=== PATIENT | female | born 1935 | race Caucasian/White ===

== ENCOUNTER → 2016-10-13 14:34 | Outpatient (CLI) | payer MEDICARE, OTHER ==
[2016-05-14 12:57] VITALS: BMI 27.2
[~2016-10-13 14:34] MED LIST: ASCORBIC ACID500 MG OR; ASPIRIN EC81 M1 PO; BACTRIM DS TABL1 TAB PO; CALCIUM 500 + D1 TAB; CALTRATE 600 M600 M1 PO; CHOLESTEROL REDUCTIO OR; CILOSTAZOL50 MG PO; COUMADIN2.5 MG PO; COUMADIN5 MG PO; DUREZOL5 ML LEFT EYE; FISH OIL 1,0001 CA1 PO; GABAPENTIN100 MG PO; GARLIC1 CAP PO; GINSENG OR; GLUCOSAMINE HC500 MG PO; HYDROCODON-ACE1 EAC7 PO; ILEVRO 0.3% OPHTH DR LEFT EYE; K-DUR20 MEQ PO; LECITHIN1200 MG PO; LEVOTHYROXINE100 MCG PO; MILK THISTLE140 MG PO; MULTI-DAY VITAM1 TAB PO; NUTRIFERON PO; OSTEO MATRIX PO; PLAVIX75 MG PO; PRAVACHOL20 MG PO; PRAVASTATIN SOD10 MG PO; PROBIOTIC; SLOW-MAG 64 MG64 MG PO; STRESS RELIEF PO; SYNTHROID100 MCG PO; TOBREX5 ML LEFT EYE; VITAMIN B COMPL1 TAB PO; VITAMIN C500 MG PO; VITAMIN D31000 UNIT PO; VITAMIN E200 UNI1 PO; VITAMIN E400 UNI2 PO; VIVIX PO; ZINC COMPLEX PO; ZINC30 MG PO; [UNRECOGNIZED DRUG - OTHER] OR; [UNRECOGNIZED DRUG - OTHER] OR; [UNRECOGNIZED DRUG - OTHER] OR; [UNRECOGNIZED DRUG - OTHER] OR; [UNRECOGNIZED DRUG - OTHER] OR; [UNRECOGNIZED DRUG - OTHER] OR; [UNRECOGNIZED DRUG - OTHER] OR; [UNRECOGNIZED DRUG - OTHER] PO; [UNRECOGNIZED DRUG - OTHER] PO; [UNRECOGNIZED DRUG - OTHER] PO; [UNRECOGNIZED DRUG - OTHER] PO; [UNRECOGNIZED DRUG - OTHER] PO; [UNRECOGNIZED DRUG - OTHER] PO; [UNRECOGNIZED DRUG - OTHER] PO; [UNRECOGNIZED DRUG - OTHER] PO; [UNRECOGNIZED DRUG - OTHER] PO; [UNRECOGNIZED DRUG - OTHER] PO; [UNRECOGNIZED DRUG - OTHER] PO; [UNRECOGNIZED DRUG - OTHER] PO; [UNRECOGNIZED DRUG - OTHER] PO; [UNRECOGNIZED DRUG - OTHER] PO; [UNRECOGNIZED DRUG - OTHER] PO; [UNRECOGNIZED DRUG - REMARK] PO
== END | disposition home or self-care (01) ==
LOC: D.LABREF 14:34
DX: R19.7 Diarrhea, unspecified (principal)

== ENCOUNTER 2017-12-09 18:55 | Inpatient (IN) | payer MEDICARE, OTHER ==
[~2017-12-09] VITALS: Ht 167.6 cm; Wt 78.7 kg
--- NOTE | ~2017-12-09 | OP ---
PATIENT NAME: HUI VARGAS MEDICAL RECORD: [id number] :31 LOCATION:[facility] D.2310 ADMISSION DATE:12/09/17 SURGEON: JOSHUA BLANC MD DATE OF OPERATION: 12/13/2017 SURGEON: Joshua Blanc MD FIELD MAP EDITOR: BURTON Landin OPERATION PERFORMED: Incision and drainage of right thigh abscess and debridement of right thigh abscess cavity 12 x 8 x 10 cm. PREOPERATIVE DIAGNOSIS: Thigh abscess with history of right femoral tibial bypass. POSTOPERATIVE DIAGNOSIS: Thigh abscess with history of right femoral tibial bypass. ANESTHESIA: Monitored anesthesia care and 1% Xylocaine. SPECIMENS: Debrided material for pathology and aerobic and anaerobic cultures. COMPLICATIONS: None. BLOOD LOSS: 10 cc. CONDITION: Stable to ICU. OPERATIVE FINDINGS: Seropurulent tissue and devascularized fat removed. The graft was not encountered. DESCRIPTION OF PROCEDURE: The patient was brought to the operating suite. After prep, intravenous sedation was given and the area was anesthetized. The 2 draining incisions were connected and widened slightly to allow opening of the wound, was irrigated and cleaned with a Pulse-Evac. Devitalized tissue was removed. The graft was not encountered. The area was made hemostatic with electrocautery and a wound VAC was placed. Later, the ankle area was inspected. The patient to recovery in stable condition. TRANSINT:[id number] Voice Confirmation ID: [id number] DOCUMENT ID: [id number] JOSHUA BLANC MD at 1032 CC: CELIA KWONG [id number] DICTATION DATE: 12/13/17 1504 QUILTING MACHINE HELPER: 12/13/17 1610 ADM IN [place] [id number] [place] [address]
--- NOTE | ~2017-12-09 | HP ---
PATIENT: HUI VARGAS MEDICAL RECORD: [id number] ACCOUNT: [id number] LOCATION:D.[id number] : 31 ADMISSION DATE: 12/09/17 HISTORY AND PHYSICAL EXAMINATION REASON FOR ADMISSION: Fever with right leg redness. HISTORY OF PRESENT ILLNESS: The patient is an 82-year-old female with history of severe peripheral vascular disease. She had been followed at the [facility] here for a nonhealing chronic stasis ulcer on her right ankle. She had been having progress with healing of this wound. A culture on November 09 showed evidence of pseudomonas and enterococcus, and she was treated with Zyvox. She states doing better until 3 days prior to admission when she developed a fever to 101.5 for 2 days and spontaneously resolved. She had no cough or dysuria. She went to the clinic yesterday and they noticed increased swelling and redness in her right inner thigh over her previous graft site and they recommended she come to the Emergency Room. On presentation to the ER, she had evidence of cellulitis. She has now been admitted for IV antibiotics. Most recent oral antibiotic was Cipro taken 2 weeks ago. Hypothyroidism. OTHER PAST HISTORY: History of chronic peripheral vascular disease. Has had multiple procedures and stents in her right lower extremity dating back to 2014, at which point she developed a chronic ulcer above her right medial ankle. She had been evaluated at [facility] and most recently [facility]. States she has had approximately 12-13 stents placed in her right lower extremity, had a bypass in August of [address] Olivo at [facility]. She has continued to have draining right medial ankle ulcer since that time. History of benign thyroid nodule, osteoarthritis, remote history of shingles, hyperlipidemia, postmenopausal urinary incontinence, basal ganglia infarcts in November 2009 with negative workup, stasis ulcer right ankle, CAD. PAST SURGICAL HISTORY: The 12-13 stent placements in her right lower extremity, plus fem-pop. SARAH-BSO. Appendectomy. SOCIAL HISTORY: Nondrinker. She smoked 3 cigarettes a day for 1-2 years, quit years ago in 1973. She is . Her is a heart patient. ALLERGIES: PENICILLIN AND ERYTHROMYCIN. FAMILY HISTORY: Mother of stroke at age 80. Father of unknown causes. Her mother also had Parkinson disease and diabetes. HOME MEDICATIONS: Warfarin 5 mg daily at 5 p.m., Pletal 50 mg b.i.d., aspirin 81 mg daily, calcium carbonate with vitamin D 500 mg b.i.d., Synthroid 100 mcg p.o. q.a.m. a.c. breakfast, vitamin E 800 units 3 times weekly, vitamin D 2000 units daily, ascorbic acid 1000 units p.o. daily, vitamin B complex 3 tabs daily, glucosamine 2 tabs b.i.d. 500 mg, takes multiple Shaklee vitamins including calfafa 10 mg daily, zinc complex 1 tab daily, magnesium 1 tab daily. REVIEW OF SYSTEMS: CONSTITUTIONAL: Fever as mentioned, now resolved. HEENT: No recent visual change, sinus congestion, or sore throat. RESPIRATORY: No SOB or cough. CARDIAC: No chest pain, claudication, or edema HISTORY AND PHYSICAL [id number] HUI VARGAS GASTROINTESTINAL: No nausea or vomiting. GENITOURINARY: No dysuria. GYNECOLOGIC: No vaginal bleeding. MUSCULOSKELETAL: Has arthralgias in her lumbar spine and knees. NEUROLOGIC: Oriented to person, place, and time. Cranial nerves intact. PSYCHIATRIC: Denies anxiety, depression. PHYSICAL EXAMINATION: VITAL SIGNS: Her temperature is 97.6 Fahrenheit orally, pulse 88, respirations are 18, blood pressure 150/76 with a sat of 96% on room air. HEENT: Normocephalic. Eyes are clear. NECK: No bruits or masses. CHEST: Clear. HEART: Regular without murmur. PMI appropriate. ABDOMEN: Soft, nontender. No organomegaly. PELVIC: Deferred. EXTREMITIES: She has erythema over her upper inner right thigh incision site. There is no open wound. The erythema extends approximately 10 x 4 cm. Below that on her right medial malleolus, there is a chronic ulcer that measures 2.8 x 1.3 x 0.3 full thickness with good granulation tissue. NEUROLOGICAL: Oriented to person, place, and time. Cranial nerves intact. Gait normal. LABORATORY DATA: White count is 6900 with normal diff, H&H is 12.7 and 38.7. Chemistry is normal. Glucose 107, nonfasting. Liver functions are normal. UA was not obtained. No imaging was done in the ED. ASSESSMENT: Spontaneous cellulitis in right lower extremity, history of peripheral vascular disease, coronary artery disease, hypothyroidism, essential hypertension, remote transient ischemic attack in 2009, deep vein thrombosis in 1967, hyperlipidemia. PLAN: The patient will be admitted, placed on IV antibiotics. Wound consult. Further workup pending clinical course. TRANSINT:[id number] Voice Confirmation ID: [id number] DOCUMENT ID: [id number] CELIA KWONG MD at 2031 CC: [id number] DICTATION DATE: 12/10/17 06 COPPER ETCHER: 12/10/17 0947 ADM IN [place] [id number] [place] [id number]
[~2017-12-09 18:55] MED LIST changes: +[UNRECOGNIZED DRUG - OTHER] PO; -[UNRECOGNIZED DRUG - OTHER] PO
[2017-12-09 20:13] LABS: BASOPHILS 0.3 % (0-2); EOSINOPHILS 2.8 % (0-7); HEMATOCRIT 38.7 % (36.0-48.0); HEMOGLOBIN 12.7 g/dL (12-16); MCH 29.7 pg (26.0-34.0); MCHC 32.8 g/dL (31.0-37.0); MCV 90.4 fL (80.0-100.0); MEAN PLATELET VOLUME 10.1 fL (7.4-10.4); MONOCYTES 10.9 % (2-11); PLATELET COUNT 246 10x3/uL (130-400); RBC 4.28 10x6/uL (4.00-5.40); RDW 14.9 % (11.5-14.5); WBC 6.9 10x3/uL (4.8-10.8)
[2017-12-09 20:25] LABS: INR 2.91 (0.85-1.17); PROTIME 29.7 SECONDS (11.6-15.0)
[2017-12-09 20:26] LABS: APTT 61.6 SECONDS (22.8-39.4)
[2017-12-09 20:32] LABS: ALBUMIN 3.1 g/dL (3.4-5.0); ANION GAP 13.4 mmol/L (8-16); BILIRUBIN - TOTAL 0.4 mg/dL (0.2-1.3); CALCIUM 9.4 mg/dL (8.5-10.1); CARBON DIOXIDE 28.6 mmol/L (21.0-32.0); CREATININE - SERUM 1.2 mg/dL (0.6-1.3); PROTEIN - SERUM 6.9 g/dL (6.4-8.2)
[2017-12-09 20:40] LABS: THYROID STIMULATING HORMONE 0.89 uIU/mL (0.36-3.74)
[2017-12-10 00:11] VITALS: BP 157/63; BMI 27.3
[2017-12-10 00:37] VITALS: BP 136/69
[2017-12-10 08:54] VITALS: BP 115/57
[2017-12-10 11:50] VITALS: BP 119/59
[2017-12-10 15:57] VITALS: BP 131/56
[2017-12-10 23:18] VITALS: BP 141/64
[2017-12-11 05:17] VITALS: BP 125/70
[2017-12-11 08:14] VITALS: BP 124/64
[2017-12-11 12:13] VITALS: BP 139/64
[2017-12-11 16:03] VITALS: BP 137/64
[2017-12-12 05:01] LABS: INR 4.2 (0.85-1.17); PROTIME 39.7 SECONDS (11.6-15.0)
[2017-12-12 05:26] VITALS: BP 122/60
[2017-12-12 09:01] VITALS: BP 119/62
[2017-12-12 13:06] VITALS: BP 111/52
[2017-12-12 21:56] VITALS: BP 128/36
[2017-12-13] VITALS (11 sets, daily range): BP systolic 115–156; BP diastolic 53–99; Ht 167.6 cm; Wt 78.7 kg
[2017-12-13 04:50] LABS: INR 3.75 (0.85-1.17); PROTIME 36.2 SECONDS (11.6-15.0)
[2017-12-13 11:12] LABS: HEMATOCRIT 36.3 % (36.0-48.0); HEMOGLOBIN 11.9 g/dL (12-16); MCH 29.4 pg (26.0-34.0); MCHC 32.8 g/dL (31.0-37.0); MCV 89.6 fL (80.0-100.0); MEAN PLATELET VOLUME 10.8 fL (7.4-10.4); RBC 4.05 10x6/uL (4.00-5.40); RDW 15.1 % (11.5-14.5); WBC 8.6 10x3/uL (4.8-10.8)
[2017-12-13 11:13] LABS: CALCIUM 8.8 mg/dL (8.5-10.1); CARBON DIOXIDE 30.1 mmol/L (21.0-32.0); POTASSIUM - SERUM 4.1 mmol/L (3.5-5.1)
[2017-12-13 16:05] LABS: HEMATOCRIT 36.7 % (36.0-48.0); MCH 29.1 pg (26.0-34.0); MCHC 32.7 g/dL (31.0-37.0); MCV 89.1 fL (80.0-100.0); MEAN PLATELET VOLUME 10.1 fL (7.4-10.4); RBC 4.12 10x6/uL (4.00-5.40); RDW 14.9 % (11.5-14.5); WBC 7.6 10x3/uL (4.8-10.8)
[2017-12-13 16:22] LABS: INR 1.65 (0.85-1.17)
[2017-12-13 18:31] LABS: APPEARANCE CLEAR (CLEAR); BILIRUBIN NEGATIVE (NEGATIVE); COLOR YELLOW (YELLOW); GLUCOSE NEGATIVE (NEGATIVE); KETONE NEGATIVE (NEGATIVE); NITRITE NEGATIVE (NEGATIVE); PROTEIN NEGATIVE (NEGATIVE); UROBILINOGEN NORMAL (NORMAL)
[2017-12-14] VITALS (27 sets, daily range): BP systolic 72–163; BP diastolic 43–98
[2017-12-14 04:20] LABS: HEMATOCRIT 35.7 % (36.0-48.0); HEMOGLOBIN 11.5 g/dL (12-16); MCH 28.8 pg (26.0-34.0); MCHC 32.2 g/dL (31.0-37.0); MCV 89.3 fL (80.0-100.0); MEAN PLATELET VOLUME 10.1 fL (7.4-10.4); RDW 14.7 % (11.5-14.5)
[2017-12-14 04:28] LABS: INR 1.65 (0.85-1.17)
[2017-12-14 04:36] LABS: ANION GAP 11.9 mmol/L (8-16); CALCIUM 8.8 mg/dL (8.5-10.1); CARBON DIOXIDE 29.1 mmol/L (21.0-32.0); CREATININE - SERUM 0.8 mg/dL (0.6-1.3)
[2017-12-14 04:38] LABS: WBC 5.2 10x3/uL (4.8-10.8)
[2017-12-15] VITALS (18 sets, daily range): BP systolic 110–153; BP diastolic 46–90
[2017-12-15 04:15] LABS: BASOPHILS 0.5 % (0-2); EOSINOPHILS 4.3 % (0-7); HEMATOCRIT 36.6 % (36.0-48.0); HEMOGLOBIN 11.9 g/dL (12-16); IMMATURE GRANULOCYTES 0.3 % (0-5); LYMPHOCYTES 25.3 % (15-50); MCHC 32.5 g/dL (31.0-37.0); MCV 89.3 fL (80.0-100.0); NEUTROPHILS 62.6 % (40-80); PLATELET COUNT 272 10x3/uL (130-400); RDW 14.9 % (11.5-14.5); WBC 5.8 10x3/uL (4.8-10.8)
[2017-12-15 04:19] LABS: INR 1.61 (0.85-1.17); PROTIME 18.6 SECONDS (11.6-15.0)
[2017-12-15 04:25] LABS: ANION GAP 9.4 mmol/L (8-16); CALCIUM 8.9 mg/dL (8.5-10.1); CARBON DIOXIDE 28.7 mmol/L (21.0-32.0); CREATININE - SERUM 0.9 mg/dL (0.6-1.3); POTASSIUM - SERUM 4.1 mmol/L (3.5-5.1)
[2017-12-16] VITALS: BP 172/72
[2017-12-16 04:00] VITALS: BP 120/60
[2017-12-16 06:34] LABS: BASOPHILS 0.5 % (0-2); EOSINOPHILS 3.4 % (0-7); HEMATOCRIT 35.9 % (36.0-48.0); HEMOGLOBIN 11.8 g/dL (12-16); IMMATURE GRANULOCYTES 0.2 % (0-5); LYMPHOCYTES 20.1 % (15-50); MCH 29.1 pg (26.0-34.0); MCHC 32.9 g/dL (31.0-37.0); MCV 88.6 fL (80.0-100.0); MEAN PLATELET VOLUME 10.1 fL (7.4-10.4); MONOCYTES 7.5 % (2-11); NEUTROPHILS 68.3 % (40-80); RBC 4.05 10x6/uL (4.00-5.40); RDW 14.9 % (11.5-14.5); WBC 5.9 10x3/uL (4.8-10.8)
[2017-12-16 06:35] LABS: PLATELET COUNT 200 10x3/uL (130-400)
[2017-12-16 06:45] LABS: INR 2.05 (0.85-1.17); PROTIME 22.5 SECONDS (11.6-15.0)
[2017-12-16 08:12] LABS: ANION GAP 12.7 mmol/L (8-16); CALCIUM 8.7 mg/dL (8.5-10.1); CARBON DIOXIDE 26.5 mmol/L (21.0-32.0); CREATININE - SERUM 0.8 mg/dL (0.6-1.3); POTASSIUM - SERUM 4.2 mmol/L (3.5-5.1)
[2017-12-16 08:27] VITALS: BP 149/66
[2017-12-16 12:15] VITALS: BP 158/99
[2017-12-16 15:42] VITALS: BP 127/69
[2017-12-16 20:30] VITALS: BP 151/64
[2017-12-17 01:26] VITALS: BP 148/63
[2017-12-17 05:37] VITALS: BP 141/60
[2017-12-17 08:53] VITALS: BP 112/55
[2017-12-17] MEDS ORDERED: FLAGYL500 MG PO (09:41)
[2017-12-17] MEDS ORDERED: KEFLEX500 MG PO (09:44)
[2017-12-17 11:43] VITALS: BP 134/61
== END 2017-12-17 19:26 | disposition home health service (06) | DRG 908 ==
LOC: D.ER 18:55 → D.ICU 19:59 → D.EDHOLD 19:59 → D.MS 19:59 → D.ICU 12-13 13:50 → D.M2 12-15 17:48
PROVIDERS: Emergency Medicine; Family Medicine; Thoracic Surgery (Cardiothoracic Vascular Surgery)
PROC: 0JDL0ZZ Extraction of Right Upper Leg Subcutaneous Tissue and Fascia, Open Approach (ICD-10-PCS; principal; 2017-12-13 13:00)
DX: L76.82 Other postprocedural complications of skin and subcutaneous tissue (principal); L03.115 Cellulitis of right lower limb; L02.415 Cutaneous abscess of right lower limb; T81.4XXA Infection following a procedure, initial encounter; I70.201 Unspecified atherosclerosis of native arteries of extremities, right leg; I87.2 Venous insufficiency (chronic) (peripheral); E03.9 Hypothyroidism, unspecified; F17.200 Nicotine dependence, unspecified, uncomplicated; E78.5 Hyperlipidemia, unspecified; B96.20 Unspecified Escherichia coli [E. coli] as the cause of diseases classified elsewhere; I25.10 Atherosclerotic heart disease of native coronary artery without angina pectoris; I10 Essential (primary) hypertension

== ENCOUNTER → 2017-12-19 21:23 | Outpatient (CLI) | payer MEDICARE, OTHER ==
[2017-12-13 14:42] VITALS: BMI 27.2
[~2017-12-19 21:23] MED LIST changes: +FLAGYL500 MG PO; +KEFLEX500 MG PO
[2017-12-19 23:12] LABS: INR 2.7 (0.85-1.17)
== END | disposition home or self-care (01) ==
LOC: D.LABREF 21:23
PROVIDERS: Family Medicine
DX: Z51.81 Encounter for therapeutic drug level monitoring (principal); Z79.01 Long term (current) use of anticoagulants

== ENCOUNTER → 2018-11-01 16:52 | Outpatient (CLI) | payer MEDICARE, OTHER ==
[2017-12-13 14:42] VITALS: BMI 27.2
== END | disposition home or self-care (01) ==
LOC: D.LABREF 16:52
PROVIDERS: ATTEND Internal Medicine Cardiovascular Disease
DX: L08.9 Local infection of the skin and subcutaneous tissue, unspecified (principal)